=== PATIENT | female | born 1995 | race Two or more races ===

== ENCOUNTER 2021-09-03 16:13 | Emergency (ER) | payer OTHER ==
[~2021-09-03] VITALS: Ht 152.4 cm; Wt 63.6 kg
[2021-09-03 16:37] VITALS: BP 117/82
== END 2021-09-03 17:58 | disposition home or self-care (01) ==
LOC: ER 16:16
DX: J02.9 Acute pharyngitis, unspecified (principal); Z20.822 Contact with and (suspected) exposure to COVID-19; R51.9 Headache, unspecified; R42 Dizziness and giddiness
CPT/HCPCS: 99281